=== PATIENT | male | born 1955 | race African-American/Black ===

== ENCOUNTER 2016-08-16 11:35 | Emergency (ER) | payer OTHER ==
[~2016-08-16] VITALS: Ht 175.3 cm; Wt 81.0 kg
[~2016-08-16 11:35] MED LIST: insulin
[2016-08-16 14:19] VITALS: BP 142/86
== END 2016-08-16 17:19 | disposition home or self-care (01) ==
LOC: ER 13:20
DX: Z48.01 Encounter for change or removal of surgical wound dressing (principal); T81.31XA Disruption of external operation (surgical) wound, not elsewhere classified, initial encounter; Y84.8 Other medical procedures as the cause of abnormal reaction of the patient, or of later complication, without mention of misadventure at the time of the procedure; Y92.89 Other specified places as the place of occurrence of the external cause; Z91.81 History of falling; E11.9 Type 2 diabetes mellitus without complications; Z89.512 Acquired absence of left leg below knee
CPT/HCPCS: 99281; Z7610